=== PATIENT | male | born 1935 | race Caucasian/White ===

== ENCOUNTER 2019-07-15 09:39 | Inpatient (IN) ==
--- NOTE | 2019-06-25 13:27 | Anesthesiology Consultation ---
Date of Service June 25, 2019 Assessment & Plan (1) Encounter for pre-operative examination: - Cardio: 03/26/18: Chronic LBBB. Reasonably active for his age. Continued on current regimen. - Patient anxious RE: surgery-- requests anxiolytic prior to surgery if possible. Chart Review Chart Review: Pending: Refer to Additional Notes / Consult section (pending preop labs) and Patient seen in Pre Admission Testing Teaching & Discussion Pre-Anesthesia Teaching/Discussion Notes: Instructed NPO after midnight before surgery,except medications with 15 cc of water. Medication instructions provided according to the PAT guidelines. History Surgery Operation Date: 07/10/19 07:30 Proposed Procedures p Left Robotic Laparoscopic Assisted Partial Nephrectomy - Louis Bennett MD Height/Weight Height: 6 ft 3 in Weight: 65.8 kg Allergies Allergy/AdvReac Type Severity Reaction Status Date / Time Cephalosporins Allergy Unknown Rash Verified 06/25/19 10:41 gentamicin Allergy Unknown Rash Verified 06/25/19 13:26 Penicillins Allergy Unknown Rash Verified 06/25/19 10:41 acetaminophen [From Percocet] AdvReac Unknown Nausea Verified 06/25/19 10:41 oxycodone [From Percocet] AdvReac Unknown Nausea Verified 06/25/19 10:41 Medications Home Medications Medication Instructions Recorded Confirmed Last Taken Protonix 40 mg PO QAM 08/20/18 06/25/19 09/02/18 05:30 40 mg aspirin [Aspir-81] 81 mg PO QAM 08/20/18 06/25/19 06/18/19 atorvastatin [Lipitor] 10 mg PO PM 08/20/18 06/25/19 06/18/19 finasteride [Proscar] 5 mg PO QAM 08/20/18 06/25/19 09/01/18 07:00 5 mg folic acid 0.8 mg PO QAM 08/20/18 06/25/19 09/01/18 07:00 hydrocodone-acetaminophen 0.5 tab PO UD PRN 08/20/18 06/25/19 09/01/18 23:00 metoprolol succinate [Toprol XL] 12.5 mg PO QAM 08/20/18 06/25/19 09/02/18 05:30 tamsulosin 0.4 mg PO QAM 08/20/18 06/25/19 06/18/19 thiamine HCl (vitamin B1) 100 mg PO QAM 08/27/18 06/25/19 06/18/19 Caltrate 600 plus D 1 tab-cap PO DAILY 09/02/18 06/25/19 09/01/18 20:00 docusate sodium [Colace] 200 mg PO BID 09/02/18 06/25/19 09/01/18 20:00 Past Medical History Medical History Acid reflux controlled Age related osteoporosis Anemia chronic; no hx blood transfusion 60+ years ago in setting of trauma BPH (benign prostatic hyperplasia) Rogers's esophagus Diabetes mellitus, type 2 diet controlled History of seizure single episode 15+ years ago in setting of ETOH "withdrawal" Hypertension Kidney carcinoma LBBB (left bundle branch block) chronic Osteoarthritis cervical Pulmonary HTN "mild" (RVSP 33mmhg per 2017 ECHO) Exercise / Class Metabolic Activity III < 4 Walking/Shop/Light housework Past Family History Family History Father Family history of diabetes mellitus Family hx of colon cancer Mother Family hx of colon cancer Past Surgical History Surgical History History of cardiac cath 15+ YEARS AGO= NO STENTS History of cataract surgery B/L History of colonoscopy X MULTIPLE History of cystoscopy History of herniorrhaphy X 2 History of open reduction and internal fixation (ORIF) procedure LEFT HIP History of open reduction and internal fixation (ORIF) procedure MANDIBLE FRACTURE ORIF- NO ROM LIMITATIONS History of tooth extraction History of transurethral resection of prostate Hx of shoulder surgery LEFT Past Anesthesia History Other Single episode post-op bradycardia with hernia repair (treated with medication) with spinal anesthesia. ?difficult intubation 15+ years ago when intubating emergently in setting of PNA/seizure/ETOH. "Active gag reflex" per patient. Patient had more recent [facility] T[facility]P: 09/02/18: LMA at [facility] without anesthesia issues per anesthesia records/progress note. Father had bradycardia/hypotension with anesthesia induction for right hemicolectomy and "high spinal" needed to be used per patient. History of PONV No Hx of PONV and Hx of Motion Sickness Social History Smoking Status: Never smoker Do You Dip or Chew Tobacco: No Hx Alcohol Use: Yes Alcohol type: wine alcohol intake frequency: 0-2 drinks per day (2-3 small glasses wine/evening) Hx Substance Use: No Review of Systems Reflux controlled. Patient denies chest pain, shortness of breath, cough, wheezing, palpitations. Physical Exam Vital Signs VITALS BP 154/64 P 60 TEMP 97.9 SP02 98%RA RESP 16 PHYSICAL Mildly decreased cervical extension 2/2 cervical osteoarthritis Full TMJ range of motion. TMD 3.5 finger breaths Mallampati Score 2 Dentition: intact, several caps/crowns Lungs: clear throughout to auscultation Cardiac: regular rate and rhythm, no murmurs noted Spine: normal Carotid arteries: negative bruit Extremities: no edema Testing Electrocardiogram Date: 08/27/18 SR with first degree AVB at 63bpm. Echocardiogram Date: 03/01/17 EF 50%. Global HK. cLVH. thickened MV with mitral annular calcification. Grade I DD. Moderate LAE. Mild NV/TI. Mild pulmonary HTN (RVSP 33mmhg). Other Testing Chest CT: 12/23/18: 6mm noncalcified superior segment LLL (stable). No new pulmonary nodules. Evidence of old trauma in the left upper posterior lobe. Right thyroid lobe lesion. Left renal mass.
--- NOTE | 2019-06-25 13:48 | PAT Medication Instructions ---
Medication Instructions Date of Service June 25, 2019 Home Medications Protonix 40 mg PO QAM aspirin [Aspir-81] 81 mg PO QAM atorvastatin [Lipitor] 10 mg PO PM finasteride [Proscar] 5 mg PO QAM folic acid 0.8 mg PO QAM hydrocodone-acetaminophen 0.5 tab PO UD PRN metoprolol succinate [Toprol XL] 12.5 mg PO QAM tamsulosin 0.4 mg PO QAM thiamine HCl (vitamin B1) 100 mg PO QAM Caltrate 600 plus D 1 tab-cap PO DAILY docusate sodium [Colace] 200 mg PO BID ASK your prescriber and surgeon aspirin [Aspir-81] 81 mg PO QAM DO NOT take the morning of surgery folic acid 0.8 mg PO QAM thiamine HCl (vitamin B1) 100 mg PO QAM Caltrate 600 plus D 1 tab-cap PO DAILY docusate sodium [Colace] 200 mg PO BID Take morning of surgery With a small sip of water, OTHERWISE NOTHING TO EAT OR DRINK AFTER MIDNIGHT: Protonix 40 mg PO QAM finasteride [Proscar] 5 mg PO QAM hydrocodone-acetaminophen 0.5 tab PO UD PRN (okay to take up to 4 hours prior to surgery if needed) metoprolol succinate [Toprol XL] 12.5 mg PO QAM tamsulosin 0.4 mg PO QAM Take evening before surgery atorvastatin [Lipitor] 10 mg PO PM hydrocodone-acetaminophen 0.5 tab PO UD PRN (if needed) docusate sodium [Colace] 200 mg PO BID Other Notes If you have any questions please call us at [phone] or [phone] or [phone] or [phone]
[2019-06-25 15:23] LABS: Basophils # (auto) 0.01 K/uL (0-0.2); Basophils % (auto) 0.2 %; Eosinophils # (auto) 0.15 K/uL (0-0.5); Eosinophils % (auto) 2.4 %; Hemoglobin 11.9 g/dL (14.0-18.0); Immature Granulocytes # (auto) 0.02 K/uL (0.00-0.02); Immature Granulocytes % (auto) 0.3 %; Lymphocytes # (auto) 1.56 K/uL (1.2-3.4); Lymphocytes % (auto) 25.4 %; Mean Corpuscular Hemoglobin 32.9 pg (25-34); Mean Corpuscular Hgb Conc 33.1 g/dL (32-36); Mean Corpuscular Volume 99.4 fL (80-100); Mean Platelet Volume 10.1 fL (7.4-10.4); Monocytes # (auto) 0.43 K/uL (0.11-0.59); Neutrophils # (auto) 3.96 K/uL (1.4-6.5); Neutrophils % (auto) 64.7 %; Platelet Count 171 K/uL (130-400); RDW Coefficient of Variation 12.4 % (11.5-14.5); RDW Standard Deviation 44.8 fL (36.4-46.3); Red Blood Count 3.62 M/uL (4.7-6.1); White Blood Count 6.13 K/uL (4.8-10.8)
[2019-06-25 15:24] LABS: Appearance Urine Clear (Clear); Bilirubin Urine Negative (Negative); Blood Urine Negative (Negative); Color Urine Yellow; Glucose Urine UA Negative (Negative); Ketones Urine Negative (Negative); Leukocyte Esterase Urine Negative (Negative); Nitrite Urine Negative (Negative); Protein Urine Negative (Negative); Specific Gravity Urine 1.018 (1.000-1.030); Urobilinogen Urine Negative (Negative)
[2019-06-25 15:30] LABS: BUN Creatinine Ratio 13.5 (10-20); Creatinine Clr Calc Pharmacy 63.2 ml/min; Est GFR (African American) 94.6; Est GFR (Non-African American) 81.6; Potassium 4.3 mmol/L (3.5-5.1)
[~2019-07-15 09:39] MED LIST: ACETAMINOPHEN 1000 MG/100 ML IV IV SCH; LR 15ML/HR IV SCH; SODIUM CHLORIDE 0.9% 250 ML IV PRN; VANCOMYCIN HCL 1,000 MG in SODIUM CHLORIDE 0.9% 250 ML IV SCH
[2019-07-15] MEDS: ACETAMINOPHEN 1000 MG/100 ML IV IV SCH ×2 (10:15→10:16)
[2019-07-15] MEDS ORDERED: BUPIVACAINE 0.5 % 5 MG/1 ML MPF 30ML VIAL ONE (11:14)
--- NOTE | 2019-07-15 11:17 | History & Physical Bridge Note ---
Date of Service July 15, 2019 History & Physical Bridge Note I have examined the patient, reviewed the History & Physical and in the interval since the performance of the History & Physical I have noted the following changes of clinical significance: no changes noted
[2019-07-15] MEDS ORDERED: fentaNYL citrate 100 MCG/2 ML VIAL ONE (11:20)
[2019-07-15] MEDS ORDERED: MIDAZOLAM HCL 1 MG/ML 2ML VIAL ONE (11:20)
[2019-07-15] MEDS ORDERED: DEXAMETHASONE SOD INJ 4 MG/ML VIAL IV PRN (12:04)
[2019-07-15] MEDS ORDERED: HYDROmorphone INJ 2 MG/ML SYR/VIAL IV PRN (12:04)
[2019-07-15] MEDS ORDERED: fentaNYL citrate 100 MCG/2 ML VIAL IV PRN (12:04)
[2019-07-15] MEDS ORDERED: PROMETHAZINE HCL 12.5 MG in SODIUM CHLORIDE 0.9% 50 ML IV PRN (12:04)
[2019-07-15] MEDS ORDERED: ONDANSETRON INJ 2 MG/ML 2 ML VIAL IV PRN ×2 (12:04→17:29)
[2019-07-15] MEDS ORDERED: ePHEDrine sulfate 50 MG/ML AMP IV PRN (12:04)
[2019-07-15] MEDS ORDERED: ATROPINE SULFATE 0.1 MG/ML 10ML SYR IV PRN (12:04)
[2019-07-15] MEDS ORDERED: METOCLOPRAMIDE HCL INJ 5 MG/ML 2 ML VIAL IV PRN (12:04)
[2019-07-15] MEDS ORDERED: PROPOFOL IV EMULSION 10 MG/ML 20 ML VIAL IV ONE (12:35)
[2019-07-15] MEDS ORDERED: LIDOCAINE HCL 2% 2 ML VIAL/AMP(20MG/ML) INFIL ONE (12:35)
[2019-07-15] MEDS ORDERED: GLYCOPYRROLATE 0.2 MG/ML VIAL ONE ×2 (12:36→15:42)
[2019-07-15] MEDS ORDERED: ROCURONIUM BROMIDE 10 MG/ML 5 ML VIAL ONE ×2 (12:36)
[2019-07-15] MEDS ORDERED: TISSEEL FIBRIN SEALANT 10ML TOP ONE (12:44)
--- NOTE | 2019-07-15 15:25 | Operative Report ---
PG Post Operative Report Pre & Post Diagnosis Operation Date: 07/15/19 11:50 Pre-Op Diagnosis: Left Renal Mass Post-Op Diagnosis: Left Renal Mass I identified the patient and participated in the time-out.: Yes Procedure Operation Date: 07/15/19 11:50 Actual Procedures p Left Robotic Laparoscopic Assisted Partial Nephrectomy(Left) - Louis Bennett MD Surgeon Louis Bennett MD Steam Roller Operator MARCIAL HAINES Estimated Blood Loss 50 Findings Consistent with Post-Op Diagnosis (IVF 1500 cc) Specimens L renal mass, fat overlying tumor Description of Procedure L robotic partial nephrectomy. I attest to the content of the Intraoperative Record and any orders documented therein. Any exceptions are noted below.
[2019-07-15] MEDS ORDERED: MANNITOL 25% 12.5 GM/50 ML VIAL IV ONE ×2 (15:29→15:44)
[2019-07-15] MEDS ORDERED: NEOSTIGMINE METHYLSULFATE 5 MG/5 ML SYR ONE (15:42)
[2019-07-15] MEDS ORDERED: PHENYLEPHRINE 100MCG/ML 5ML SYR ONE (15:46)
--- NOTE | 2019-07-15 16:26 | Anesthesiology Progress Note ---
Date of Service July 15, 2019 Anesthesia Post Procedure Vital Signs Vital Signs: Temp Pulse Pulse Resp BP Pulse Ox 07/15/19 16:20 60 17 152/49 H 97 07/15/19 16:10 36.8 C 56 L 18 148/47 H 100 07/15/19 16:00 51 L 18 155/49 H 100 07/15/19 15:50 48 L 16 144/47 H 100 07/15/19 15:40 46 L 16 141/43 H 100 07/15/19 15:33 37.3 C 60 16 154/47 H 100 07/15/19 10:22 36.5 C 76 18 210/68 H 100 Pain Intensity Right Shoulder: Pain Intensity: 5 Transfer of Care Handoff Completed per policy Notes Mental Status: alert / awake / arousable and participated in evaluation Patient Amnestic to Procedure: Yes Nausea / Vomiting: adequately controlled Pain: adequately controlled Airway Patency, RR, SpO2: stable & adequate BP & HR: stable & adequate Hydration State: stable & adequate Anesthetic Complications: no major complications apparent and Pt Satisfied with anesthetic care
[2019-07-15] MEDS ORDERED: OXYCODONE HCL IR 5 MG TAB (IMMEDIATE RELEASE) PO PRN (17:29)
[2019-07-15] MEDS ORDERED: HYDROmorphone INJ 1 MG/ML SYRINGE IV PRN ×2 (17:29)
[2019-07-15 17:50] LABS: Basophils # (auto) 0.01 K/uL (0-0.2); Basophils % (auto) 0.1 %; Hematocrit (blood only) 33.7 % (42-52); Hemoglobin 11.1 g/dL (14.0-18.0); Immature Granulocytes # (auto) 0.02 K/uL (0.00-0.02); Immature Granulocytes % (auto) 0.2 %; Lymphocytes # (auto) 0.53 K/uL (1.2-3.4); Mean Corpuscular Hemoglobin 33.1 pg (25-34); Mean Corpuscular Volume 100.6 fL (80-100); Mean Platelet Volume 9.1 fL (7.4-10.4); Monocytes # (auto) 0.52 K/uL (0.11-0.59); Monocytes % (auto) 5.8 %; Neutrophils # (auto) 7.82 K/uL (1.4-6.5); Neutrophils % (auto) 87.9 %; Platelet Count 138 K/uL (130-400); RDW Standard Deviation 47.6 fL (36.4-46.3); Red Blood Count 3.35 M/uL (4.7-6.1)
[2019-07-15 17:54] LABS: Mean Corpuscular Hgb Conc 32.9 g/dL (32-36)
[2019-07-15 18:11] LABS: BUN Creatinine Ratio 16.9 (10-20); Calcium 8.8 mg/dl (8.5-10.1); Est GFR (African American) 95.1; Potassium 4.1 mmol/L (3.5-5.1)
[2019-07-15] MEDS: LACTATED RINGER'S 1,000 ML IV SCH (18:39)
[2019-07-15] MEDS: ACETAMINOPHEN 65 ML IV SCH (18:39)
[2019-07-15] MEDS: OXYCODONE HCL IR 5 MG TAB (IMMEDIATE RELEASE) PO PRN ×2 (18:41→22:50)
[2019-07-15] MEDS ORDERED: VANCOMYCIN CONSULT ACTIVE PRN (20:57)
[2019-07-15] MEDS ORDERED: VANCOMYCIN HCL 1,000 MG in SODIUM CHLORIDE 0.9% 250 ML IV SCH (21:00)
--- NOTE | 2019-07-15 21:40 | Operative Report ---
DATE OF OPERATION: 07/15/2019 PREOPERATIVE DIAGNOSIS: 3.1 cm left renal mass. POSTOPERATIVE DIAGNOSIS: 3.1 cm left renal mass. PROCEDURE: Robot-assisted laparoscopic left-sided partial nephrectomy. SURGEON: Louis Bennett MD. TMD TEACHER ASSISTANT: Dr. Alessio Guadarrama. ZAKI Atwood. Assistants were present throughout the case for retraction of tissues, suction, passage of the needles and instrument exchange, patient positioning, application of tissue sealants and general patient safety. ANESTHESIA: General anesthesia with endotracheal intubation plus local at port sites. ESTIMATED BLOOD LOSS: 50 mL. IV FLUIDS: 1500 mL crystalloid. URINE OUTPUT: 300 mL. WARM ISCHEMIA TIME: 6 minutes. DRAINS LEFT IN PLACE: Include a Coppola catheter to gravity drainage. COMPLICATIONS: None. FINDINGS: Excellent renal ischemia after a single renal artery clamp was placed, 6 minutes of warm ischemia time with a clean margins apparent on direct visualization at the site of resection. 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 This was felt to be consistent with renal cell carcinoma at the time of diagnosis. Seeing the relatively small size conservative management was initially proposed and considered. A renal mass was noted to grow at a slow rate on subsequent imaging later in 2019. For discussion of treatment options, patient considered percutaneous interventional radiology based ablation. However, after discussion of risks and benefits of various forms of management and his treatment options, he has decided upon a robotic partial nephrectomy to manage his disease. Please see H and P for further details. Intravenous vancomycin was provided for antibiotic coverage and SCDs used for DVT prophylaxis. Intravenous Tylenol was provided for perioperative analgesia as well. Informed consent reviewed with the patient preoperatively today. DESCRIPTION OF PROCEDURE: The patient was properly identified and brought into the operative suite after identification of appropriate consent on the chart. General anesthesia with endotracheal intubation was initiated. The patient was prepped and draped in standard fashion for this procedure. continuous improvement coordinator-out procedure was followed. The patient was placed in a gentle left flank up position with flexion on the table to allow for access to the left kidney. A 12 mm incision was made in the midclavicular line and using a visual obturator, the abdominal cavity was entered directly with the 0-degree laparoscope. The patient was noted to have a quite thin and elongated body habitus with a bowel peristalsis being clearly visible through the abdominal wall. Abdomen was able to be entered and insufflated without any evidence of injury to the bowel or the intraabdominal contents on access to the abdomen. The patient was noted to have a transient vagal reaction which was quickly controlled and associated with prompted desufflation of the abdominal cavity. The remainder of the case the intra-abdominal pressures were kept at 10 which allowed for sufficient visualization and dissection throughout. Ports were placed including two 7 mm robotic ports and two 12 mm first assistant ports to allow for suction, instrument and bulldog passage. The attention was then turned to the intraabdominal contents where a dilated and lateral colon was appreciated. This was able to be dissected free along the white line of Toldt and dissected medially to allow for access to the retroperitoneum. The patient was noted to have a paucity of intra-abdominal fat, but a copious fat around the kidney at the level of the Gerota's fascia was appreciated. The psoas muscle was identified in the left lower quadrant and the spleen was mobilized medially by incising its lateral attachments. Dissection was carried out until the gonadal vein and the ureter were encountered. Some fair amount of inflammation in the retroperitoneal tissues likely associated with the age was noted. Once the ureter and psoas had been identified, lateral traction was then possible by the system on the kidney. This was carried out in a cephalad direction until a single renal artery and vein were encountered consistent with the patient's previous CT scan imaging findings. Seeing the relatively small tumor location and its lateral, peripheral location on CT scan as well as its relatively small interface with the kidney, the hilum was cleaned with clamping for a solitary renal artery clamp. The renal artery was skeletonized to allow for control later in the case. Attention was then turned to Gerota's fascia where intracorporeal ultrasound was performed to allow for identification of the location of the tumor. This was easily visualized in the mid pole consistent with the patient's CT scan findings. Gerota's fascia was incised somewhat lateral to this and the renal capsule was encountered. Dissection was carried alongside the renal capsule until the renal mass was identified. Adherent fat over the tumor remained in place for the majority of the dissection. At one point this fat was debulked and the fat removed from the tumor was placed in a retroperitoneal location for retrieval and analysis at the end of the case. However, the fat directly overlying the tumor was left intact. Once the tumor had been cleaned circumferentially and circumscribed, mannitol was provided intravenously to induce an osmatic diuresis. A single curved short bulldog was placed on the renal artery and the time was marked. Excellent blanching of the kidney was appreciated and the renal tumor was easily able to be removed from the renal parenchyma with minimal healthy tissue margin overlying it. No evidence of any violation of the tumor capsule was appreciated throughout the case. A V-Loc sutures with Weck clip back stop pledgets had been placed in the abdomen prior to placement of the clamp. The renal defect was oversewn in 3 rows with Weck clips being placed and the parenchyma being compressed throughout the dissection. The bulldog was then removed for a total of 6 minutes of warm ischemia time. The renal defect was reinspected and appreciated to be free of any significant bleeding. Tisseel tissue sealant was placed within the defect for additional hemostasis. An EndoCatch bag was brought into the abdomen and the renal tumor as well as the fat overlying the tumor was placed within the bag for retrieval at the end of the case. Bag was brought in through the inferior most at 12 mm port. Seeing the patient's thin body habitus to avoid the possibility of fat herniation at the drain site, a drain was left out. In addition, the superficial layer of dissection rendered to the possibility of a renal collecting system injury to be quite unlikely. None had been identified within the case. After this was complete, Gerota's fascia was closed using a second V-Loc suture in a running fashion over the site of the resection. Hilum was noted to have excellent hemostasis. Robotic instruments were removed and ports were removed as well. Excess carbon dioxide gas was removed from the abdomen. The lower most 12-mm port was enlarged slightly to allow for easy removal of the specimen bag. Fascia was closed at all port sites using 0 Vicryl sutures in a running and interrupted fashion as necessary. Skin was closed using 4-0 Monocryl and Dermabond. Anesthesia was reversed and the patient was transferred to the recovery room in stable condition. Of note, Coppola catheter was then placed in sterile fashion at beginning of the case. FOLLOWUP CARE: The patient will be admitted to the floor for standard postoperative management. I attest to the content of the Intraoperative Record and any orders documented therein. Any exceptions are noted below. MTDD
[2019-07-15] MEDS: HEPARIN SOD 5,000 UNIT/0.5 ML VIAL SQ SCH (22:12)
[2019-07-15] MEDS: ATORVASTATIN 10 MG TAB PO SCH (22:14)
[2019-07-15] MEDS: DOCUSATE SODIUM 100 MG CAP PO SCH (22:14)
[2019-07-16] MEDS: ACETAMINOPHEN 65 ML IV SCH ×3 (01:32→19:08)
[2019-07-16] MEDS: OXYCODONE HCL IR 5 MG TAB (IMMEDIATE RELEASE) PO PRN ×5 (04:20→23:11)
[2019-07-16 05:32] LABS: Basophils # (auto) 0.01 K/uL (0-0.2); Basophils % (auto) 0.1 %; Hematocrit (blood only) 31.8 % (42-52); Hemoglobin 10.8 g/dL (14.0-18.0); Immature Granulocytes # (auto) 0.01 K/uL (0.00-0.02); Immature Granulocytes % (auto) 0.1 %; Lymphocytes # (auto) 0.93 K/uL (1.2-3.4); Mean Corpuscular Hemoglobin 33.9 pg (25-34); Mean Corpuscular Volume 99.7 fL (80-100); Mean Platelet Volume 9.5 fL (7.4-10.4); Monocytes % (auto) 8.6 %; Neutrophils # (auto) 7.55 K/uL (1.4-6.5); Neutrophils % (auto) 81.2 %; Platelet Count 154 K/uL (130-400); RDW Coefficient of Variation 13.1 % (11.5-14.5); RDW Standard Deviation 48.3 fL (36.4-46.3); Red Blood Count 3.19 M/uL (4.7-6.1)
[2019-07-16 06:08] LABS: BUN Creatinine Ratio 17.5 (10-20); Calcium 8.7 mg/dl (8.5-10.1); Creatinine Clr Calc Pharmacy 62.4 ml/min; Est GFR (African American) 94.1; Est GFR (Non-African American) 81.2; Potassium 4.1 mmol/L (3.5-5.1)
[2019-07-16 07:10] VITALS: O2SAT 96
--- NOTE | 2019-07-16 07:44 | Urology Progress Note ---
Date of Service July 16, 2019 Assessment & Plan (1) Renal mass, left: A/P 83 yo male with L renal mass POD#1 s/p L robotic partial nephrectomy. Doing well. Will advance to full liquids at lunch today, increase activity. Patient in no wolff to take regular diet. HTN noted, discussed with patient. He proposes increasing dose of metroprolol temporarily - will leave as is, notes it is likely due to stress and postop discomfort. I suspect this will be transient and short term. Anticipate possible DC home tomorrow depending on progress. DC rubalcava today. Instructed to contact nursing with any difficulties. Subjective 83 yo retired POD#1 s/p uncomplicated L robotic partial nephrectomy. Intraop findings reviewed. He notes mild nausea, no emesis with ambulation yesterday in room. Dianne clears without difficulties, notes appropriate pain at incisional site. No other specific c/o, labs noted- stable. Review of Systems Constitutional: no chills and no malaise Eyes: no diplopia Ear, Nose, Mouth, Throat: no ear trauma Respiratory: no hemoptysis Cardiovascular: no chest pain Integumentary: no acne and no boil Neurologic: no paralysis Psychiatric: no hopelessness Allergy / Immunological: no tongue swelling Physical Exam Constitutional: + thin; no acute distress Eyes: eyes not dysmorphic ENMT: Ears: no external ear abnormality Neck: trachea midline; no anterior neck swelling Respiratory: no respiratory distress and does not use accessory muscles Cardiovascular: Vessels: radial pulses present Gastrointestinal (Abdomen): Inspection/Auscultation: abdomen not distended Percussion/Palpation: abdomen soft; abdomen nontender inc c/d/i. thin abdominal wall with visible peristalsis of bowel - c/w baseline exam and intraop findings Musculoskeletal: Head/Neck/Chest: normocephalic and neck supple Skin: normal turgor Neurologic: awake; not obtunded Psychiatric: Orientation: oriented x 3 Lymphatic: no lymphadenopathy Results & Data Vital Signs (Past 12 Hours) Vital Signs Temp Pulse Resp BP BP Pulse Ox 07/16/19 07:09 37.5 C 73 16 174/55 H 96 07/16/19 06:05 37.5 C 74 16 162/64 H 99 07/16/19 02:13 158/62 H 07/16/19 02:03 37.6 C H 77 18 166/60 H 97 07/15/19 23:00 37.6 C H 78 18 162/65 H 97 07/15/19 20:40 37.5 C 74 17 148/60 H 96 Laboratory Results Laboratory Results - last 48 hr 07/15/19 07/15/19 07/15/19 10:09 10:31 15:35 WBC RBC Hgb Hct MCV MCH MCHC RDW Std Deviation RDW Coeff of Morgan Plt Count MPV Immature Gran % (Auto) Neut % (Auto) Lymph % (Auto) Osborne % (Auto) Eos % (Auto) Baso % (Auto) Immature Gran # (Auto) Neut # (Auto) Lymph # (Auto) Osborne # (Auto) Eos # (Auto) Baso # (Auto) Sodium Potassium Chloride Carbon Dioxide Anion Gap BUN Creatinine Est Cr Clr Drug Dosing Est GFR ( Amer) Est GFR (Non-Af Amer) BUN/Creatinine Ratio Glucose POC Glucose 101 H 122 H Calcium Blood Type O Positive Antibody Screen NEGATIVE Crossmatch See Detail 07/15/19 07/15/19 07/15/19 17:36 17:41 17:41 WBC 8.90 RBC 3.35 L Hgb 11.1 L Hct 33.7 L MCV 100.6 H MCH 33.1 MCHC 32.9 RDW Std Deviation 47.6 H RDW Coeff of Morgan 13.0 Plt Count 138 MPV 9.1 Immature Gran % (Auto) 0.2 Neut % (Auto) 87.9 Lymph % (Auto) 6.0 Osborne % (Auto) 5.8 Eos % (Auto) 0.0 Baso % (Auto) 0.1 Immature Gran # (Auto) 0.02 Neut # (Auto) 7.82 H Lymph # (Auto) 0.53 L Osborne # (Auto) 0.52 Eos # (Auto) 0.00 Baso # (Auto) 0.01 Sodium 134 L Potassium 4.1 Chloride 99 Carbon Dioxide 29 Anion Gap 6.0 BUN 13 Creatinine 0.80 Est Cr Clr Drug Dosing 64.0 Est GFR ( Amer) 95.1 Est GFR (Non-Af Amer) 82.0 BUN/Creatinine Ratio 16.9 Glucose 123 H POC Glucose 122 H Calcium 8.8 Blood Type Antibody Screen Crossmatch 07/16/19 07/16/19 04:56 04:56 WBC 9.30 RBC 3.19 L Hgb 10.8 L Hct 31.8 L MCV 99.7 MCH 33.9 MCHC 34.0 RDW Std Deviation 48.3 H RDW Coeff of Morgan 13.1 Plt Count 154 MPV 9.5 Immature Gran % (Auto) 0.1 Neut % (Auto) 81.2 Lymph % (Auto) 10.0 Osborne % (Auto) 8.6 Eos % (Auto) 0.0 Baso % (Auto) 0.1 Immature Gran # (Auto) 0.01 Neut # (Auto) 7.55 H Lymph # (Auto) 0.93 L Osborne # (Auto) 0.80 H Eos # (Auto) 0.00 Baso # (Auto) 0.01 Sodium 133 L Potassium 4.1 Chloride 99 Carbon Dioxide 25 Anion Gap 9.0 BUN 14 Creatinine 0.82 Est Cr Clr Drug Dosing 62.4 Est GFR ( Amer) 94.1 Est GFR (Non-Af Amer) 81.2 BUN/Creatinine Ratio 17.5 Glucose 108 H POC Glucose Calcium 8.7 Blood Type Antibody Screen Crossmatch PG Care Time/CCT Total # of Minutes Spent Total Time Spent with Patient: Total time spent is greater than 50% in coordination of care (as documented) at patient's floor/unit and/or counseling patient:
[2019-07-16] MEDS ORDERED: INFLUENZA ADMINISTRATION CHARGE ONE (08:00)
[2019-07-16] MEDS ORDERED: INFLUENZA VACCINE HIGH DOSE 65+ 0.5 ML SYR IM ONE (08:00)
[2019-07-16] MEDS: LACTATED RINGER'S 1,000 ML IV SCH ×2 (08:00→20:23)
[2019-07-16] MEDS: METOPROLOL SUCC 25MG EXT REL TAB PO SCH (08:02)
[2019-07-16] MEDS: CALCIUM 600MG + VIT D 400 IU TAB PO SCH (09:20)
[2019-07-16] MEDS: DOCUSATE SODIUM 100 MG CAP PO SCH ×2 (09:20→20:22)
[2019-07-16] MEDS: HEPARIN SOD 5,000 UNIT/0.5 ML VIAL SQ SCH ×2 (09:20→20:24)
[2019-07-16] MEDS: PANTOprazole 40 MG TAB PO SCH (09:20)
[2019-07-16] MEDS: FINASTERIDE 5 MG TAB PO SCH (09:21)
[2019-07-16] MEDS: TAMSULOSIN HCL 0.4 MG CAP PO SCH (09:25)
--- NOTE | 2019-07-16 11:43 | Urology Progress Note ---
Date of Service July 16, 2019 Assessment & Plan (1) Renal mass, left: A/P 83 yo male with L renal mass POD#1 s/p L robotic partial nephrectomy. encourage ambulation. If tolerates full liquids well for lunch, okay to advance to soft diet for dinner. Orders placed. No spontaneous void yet. Will continue to monitor. Subjective 83 yo retired POD#1 s/p uncomplicated L robotic partial nephrectomy. Pt sitting up in bed at time of evaluation. Ready for pain medication, rating 7/10 in abdominal area at this time. No new issues. Catheter removed per order, HNV yet. Review of Systems Review of Systems: All systems reviewed & are unremarkable except as noted in HPI & below Physical Exam Physical Exam: A&Ox3 RRR abd nontender, bloating but soft no le edema incisions c/d/i Results & Data Vital Signs (Past 12 Hours) Vital Signs Temp Pulse Resp BP BP Pulse Ox 07/16/19 11:30 186/68 H 07/16/19 07:09 37.5 C 73 16 174/55 H 96 07/16/19 06:05 37.5 C 74 16 162/64 H 99 07/16/19 02:13 158/62 H 07/16/19 02:03 37.6 C H 77 18 166/60 H 97
[2019-07-16] MEDS: ATORVASTATIN 10 MG TAB PO SCH (20:22)
[2019-07-16 23:22] VITALS: PULSE 67
[2019-07-17] MEDS: ACETAMINOPHEN 65 ML IV SCH ×2 (01:37→10:03)
[2019-07-17] MEDS: OXYCODONE HCL IR 5 MG TAB (IMMEDIATE RELEASE) PO PRN ×2 (02:59→08:59)
[2019-07-17 06:03] LABS: Basophils # (auto) 0.01 K/uL (0-0.2); Basophils % (auto) 0.1 %; Eosinophils # (auto) 0.05 K/uL (0-0.5); Eosinophils % (auto) 0.7 %; Hematocrit (blood only) 32.4 % (42-52); Hemoglobin 10.9 g/dL (14.0-18.0); Immature Granulocytes # (auto) 0.02 K/uL (0.00-0.02); Immature Granulocytes % (auto) 0.3 %; Lymphocytes # (auto) 0.95 K/uL (1.2-3.4); Lymphocytes % (auto) 12.5 %; Mean Corpuscular Hemoglobin 33.2 pg (25-34); Mean Corpuscular Hgb Conc 33.6 g/dL (32-36); Mean Corpuscular Volume 98.8 fL (80-100); Mean Platelet Volume 9.3 fL (7.4-10.4); Monocytes # (auto) 0.68 K/uL (0.11-0.59); Monocytes % (auto) 8.9 %; Neutrophils % (auto) 77.5 %; Platelet Count 154 K/uL (130-400); RDW Coefficient of Variation 12.9 % (11.5-14.5); RDW Standard Deviation 46.8 fL (36.4-46.3); Red Blood Count 3.28 M/uL (4.7-6.1); White Blood Count 7.61 K/uL (4.8-10.8)
[2019-07-17 06:52] LABS: BUN Creatinine Ratio 15.3 (10-20); Calcium 8.6 mg/dl (8.5-10.1); Creatinine Clr Calc Pharmacy 65.6 ml/min; Est GFR (African American) 96.1; Est GFR (Non-African American) 82.9
[2019-07-17 07:38] VITALS: TEMP 97.7
--- NOTE | 2019-07-17 08:35 | Urology Progress Note ---
Date of Service July 17, 2019 Assessment & Plan (1) Renal mass, left: A/P 83 yo male with L renal mass POD#2 s/p L robotic partial nephrectomy. No new issues overnight. Progressing as expected. Pt feels ready to discharge home today. Expected clinical course and discharge instructions reviewed. Okay to discharge home after lunch. Subjective 83 yo retired POD#2 s/p uncomplicated L robotic partial nephrectomy. Had an uneventful evening. Progressing well. Able to ambulate lightly, passing a "little bit' of flatus He feels his abdominal distention has improved, now not much different than his baseline. Tolerated fish for dinner last night without n/v. VSS Labs WNL Voiding spontaneously without difficulty, draining clear yellow Review of Systems Review of Systems: All systems reviewed & are unremarkable except as noted in HPI & below Physical Exam Physical Exam: A&0x3 RRR abd soft, slightly distended incisions c/d/i urine: clear yellow Results & Data Vital Signs (Past 12 Hours) Vital Signs Temp Pulse Resp BP BP Pulse Ox 07/17/19 07:38 144/80 H 07/17/19 07:37 36.5 C 67 20 200/76 H 191/68 H 96 07/16/19 22:51 37.1 C 67 16 184/75 H 96 PG Care Time/CCT Total # of Minutes Spent Total Time Spent with Patient: Total time spent is greater than 50% in coordination of care (as documented) at patient's floor/unit and/or counseling patient:
[2019-07-17] MEDS: TAMSULOSIN HCL 0.4 MG CAP PO SCH (08:56)
[2019-07-17] MEDS: PANTOprazole 40 MG TAB PO SCH (08:57)
[2019-07-17] MEDS: METOPROLOL SUCC 25MG EXT REL TAB PO SCH (08:57)
[2019-07-17] MEDS: DOCUSATE SODIUM 100 MG CAP PO SCH (08:57)
[2019-07-17] MEDS: FINASTERIDE 5 MG TAB PO SCH (08:57)
[2019-07-17] MEDS: CALCIUM 600MG + VIT D 400 IU TAB PO SCH (08:58)
[2019-07-17] MEDS: HEPARIN SOD 5,000 UNIT/0.5 ML VIAL SQ SCH (09:07)
[2019-07-17 09:36] VITALS: BP 172/68
[2019-07-17] MEDS: LACTATED RINGER'S 1,000 ML IV SCH (09:58)
--- NOTE | 2019-07-31 07:36 | Discharge Summary ---
Date of Service July 31, 2019 Admission HPI Per Admitting Provider 83 yo male with L renal mass for partial nephrectomy, robotic. Admission Exam Per Admitting Provider NAD, thin CTAB S1 S2 Soft, ND, NT Principal Diagnosis Left renal mass Discharge Exam Constitutional + thin; no acute distress Eyes eyes not dysmorphic ENMT Ears: no external ear abnormality Neck trachea midline; no anterior neck swelling Respiratory no respiratory distress and does not use accessory muscles Cardiovascular Vessels: radial pulses present Gastrointestinal (Abdomen) Inspection/Auscultation: abdomen not distended Percussion/Palpation: abdomen soft; abdomen nontender Musculoskeletal Head/Neck/Chest: normocephalic and neck supple Skin normal turgor Neurologic awake; not obtunded Psychiatric Orientation: oriented x 3 Lymphatic no lymphadenopathy Discharge Data Allergies Allergy/AdvReac Type Severity Reaction Status Date / Time Cephalosporins Allergy Unknown Rash Verified 07/15/19 10:10 gentamicin Allergy Unknown Rash Verified 07/15/19 10:10 Penicillins Allergy Unknown Rash Verified 07/15/19 10:10 acetaminophen [From Percocet] AdvReac Unknown Nausea Verified 07/15/19 10:10 oxycodone [From Percocet] AdvReac Unknown Nausea Verified 07/15/19 10:10 Procedures Performed Operation Date: 07/15/19 11:50 Actual Procedures p Left Robotic Assisted Laparoscopic Partial Nephrectomy(Left) - Louis Bennett MD Hospital Course (1) Renal mass, left: A/P 83 yo male with L renal mass POD#2 s/p L robotic partial nephrectomy. No new issues overnight. Progressing as expected. Pt feels ready to discharge home today. Expected clinical course and discharge instructions reviewed. Okay to discharge home after lunch. Total Time Total Time Spent Total Time Spent (In Minutes): 5 Discharge Plan Discharge Items Patient Disposition: Home - Self-Care Reason For Visit: Left Renal Mass Discharge Diagnosis: left renal mass Activity: Per Instructions section Bathing: Keep incision dry Bathing Comment: Okay to shower. No tub baths/soaking. Sexual Activity: Wait until after follow-up appointment Exercise/Sports: Wait until after follow-up appointment Driving/Machine Use: Do not drive while taking prescription pain control. Non-emergency contact: Urologist Call non-emergency contact if: your pain is unusual for you, your temperature is above 101, your wound has increased redness and your wound pain has increased Follow-up/Referrals: Kota Kellogg MD [Primary Care Provider] - Diet: Regular Addtl Attending Provider Instructions: Please take all medications as prescribed and keep all follow-ups as scheduled. Please call our office at [phone] with any questions, concerns or need to reschedule appointments for any reason. We are happy to assist you. Please make PCP followup to monitor your blood pressure closely. Recovering at home: We recommend having someone with you for the first few days after surgery to help care for you. It is okay to shower tomorrow. Please avoid swimming, bathing or using hot tub until incisions are well healed. Avoid driving until you are not requiring pain medication any further. Walk at least a few times a day. Increase your distance, as you feel able. Stairs in your home are okay. Please avoid strenuous or sexual activity until your follow-up. We recommend using stool softener (i.e. Colace) to prevent constipation and straining, especially the first two weeks post operatively. Call [facility] at [phone] if you experience: Chest pain or trouble breathing (call [phone] or go to the hospital). Fever of 101F or higher Symptoms of infection at incision site, including redness or swelling, warmth, or bad-smelling drainage If you have catheter, and you notice: o Bloody urine or drainage that is dark red or has large clots (Please remember a small amount of blood is normal) o No drainage from the catheter for more than 6 hours o The catheter comes out of your bladder Pain that is not controlled with medicines Pending Studies at Discharge: Yes (pathology) Stand-Alone Forms: My [facility] Medications and DC Order Prescriptions: New docusate sodium [Colace] 100 mg capsule 100 mg PO TID Qty: 60 RF: 0 Continued atorvastatin [Lipitor] 10 mg Tablet 10 mg PO PM RF: 0 hydrocodone-acetaminophen 10-325 mg Tablet 0.5 tab PO UD PRN (Reason: Pain) RF: 0 aspirin [Aspir-81] 81 mg Tablet,Delayed Release (Dr/Ec) 81 mg PO QAM RF: 0 tamsulosin 0.4 mg Capsule 0.4 mg PO QAM RF: 0 metoprolol succinate [Toprol XL] 25 mg Tablet Extended Release 24 Hr 12.5 mg PO QAM RF: 0 finasteride [Proscar] 5 mg Tablet 5 mg PO QAM RF: 0 folic acid 0.8 mg Capsule 0.8 mg PO QAM RF: 0 Protonix [address] For Susp In Packet 40 mg PO QAM RF: 0 thiamine HCl (vitamin B1) 100 mg Tablet 100 mg PO QAM RF: 0 docusate sodium [Colace] 100 mg Capsule 200 mg PO BID RF: 0 Caltrate 600 plus D 600 mg (1,500 mg)-800 unit Tablet,Chewable 1 tab-cap PO DAILY RF: 0 Discharge Orders: Discharge Order (Routine); Ordered 07/17/19 Ordered By: Arlyn Akins/Other Patient Handouts: Surgery Prevent DVT After Admission Data Admit Date/Time: 07/15/19 15:30 Attending Provider: Louis Bennett I. Admit Provider: Louis Bennett I. Primary Care Provider: Kota Kellogg Other Interventions: Discharge Summary Assessment (RN) Last Done: 07/17/19 11:08 DC Date/Time DO NOT enter until pt leaves facility: 07/17/19 12:59
== END 2019-07-17 12:59 | disposition home or self-care (01) | DRG 661 ==
LOC: ASU 09:39 → 3N 15:30